=== PATIENT | female | born 1945 | race Caucasian/White ===

== ENCOUNTER 2020-10-07 04:38 | Emergency (ER) | payer MEDICARE ==
[~2020-10-07] VITALS: Ht 170.2 cm; Wt 97.7 kg
[2020-10-07 06:53] LABS: BASOPHILS # (AUTO) 0.1 X10'3 (0-0.2); BASOPHILS % (AUTO) 0.5 % (0-1); EOSINOPHILS # (AUTO) 0.1 X10'3 (0-0.9); EOSINOPHILS % (AUTO) 0.9 % (0-6); HEMATOCRIT 40.6 % (35.0-45.0); HEMOGLOBIN 13.3 g/dl (12.0-16.0); LYMPHOCYTES # (AUTO) 4.6 X10'3 (1.1-4.8); LYMPHOCYTES % (AUTO) 29.9 % (21-51); MEAN CORPUSCULAR HEMOGLOBIN 28.5 PG (27.0-31.0); MEAN CORPUSCULAR HGB CONC 32.8 g/dL (33.0-36.5); MEAN CORPUSCULAR VOLUME 86.9 FL (78-98); MEAN PLATELET VOLUME 9.7 FL (7.4-10.4); MONOCYTES # (AUTO) 0.6 X10'3 (0-0.9); NEUTROPHILS # (AUTO) 9.9 X10'3 (1.8-7.7); NEUTROPHILS % (AUTO) 64.7 % (42-75); PLATELET COUNT 264 X10'3 (140-440); RED BLOOD COUNT 4.67 X10'6 (4.20-5.60); RED CELL DISTRIBUTION WIDTH 13.6 % (11.5-14.5); WHITE BLOOD COUNT 15.3 X10'3 (4.5-11.0)
[2020-10-07 07:05] LABS: ALANINE AMINOTRANSFERASE 23 U/L (12-78); ALBUMIN 3.1 G/DL (3.4-5.0); ALBUMIN/GLOBULIN RATIO 0.8 (1.1-1.5); ALKALINE PHOSPHATASE 90 IU/L (46-116); ANION GAP 8 (8-16); ASPARTATE AMINO TRANSFERASE 16 U/L (10-37); BILIRUBIN,TOTAL 0.3 MG/DL (0.1-1.0); BLOOD UREA NITROGEN 21 MG/DL (7-18); BUN/CREATININE RATIO 22.6 (6.6-38.0); CALCIUM 8.6 MG/DL (8.5-10.1); CHLORIDE 105 MMOL/L (99-107); CREATININE 0.93 MG/DL (0.40-0.90); GLUCOSE 240 MG/DL (70-104); SODIUM 139 MMOL/L (135-145); TOTAL CARBON DIOXIDE 25.8 MMOL/L (24-32); TOTAL PROTEIN 6.9 G/DL (6.4-8.2); eGFR 59 ML/MIN
[2020-10-07] MEDS ORDERED: HYDR-3972 PO (07:42)
[2020-10-07] MEDS ORDERED: LOSA25TA41 PO (07:42)
[2020-10-07] MEDS ORDERED: NOVLG SQ (07:42)
[2020-10-07] MEDS ORDERED: INSU100V12 SQ (07:42)
[2020-10-07] MEDS ORDERED: ONDA-103 PO (07:42)
[2020-10-07] MEDS ORDERED: PRAV40TA3 PO (07:42)
[2020-10-07] MEDS ORDERED: ASPI-611 PO (07:44)
[2020-10-07] MEDS ORDERED: HYDR-3964 PO (08:10)
[2020-10-07] MEDS ORDERED: CEPH-585 PO (08:10)
[2020-10-07] MEDS ORDERED: ONDA4TAB6 PO (08:10)
[2020-10-07] MEDS ORDERED: gentamicin in saline, iso-osm 80 MG/50 ML premix IV ONE (09:20)
[2020-10-07] MEDS ORDERED: ceFAZolin 1000mg inj IV ONE (09:20)
[2020-10-07] MEDS ORDERED: cefazolin/dext.iso 2gm/100ml 100 ML IV ONE (09:35)
[2020-10-07] MEDS ORDERED: gentamicin inj 80 MG in normal saline 100ml IV soln 98 ML IV ONE (09:35)
[2020-10-07] MEDS ORDERED: magnesium 4gm in 100ml NS 100 ML IV PRN (09:40)
[2020-10-07] MEDS ORDERED: ondansetron/PF 4mg/2ml inj IV PRN ×2 (09:40→09:45)
[2020-10-07] MEDS ORDERED: potassium Cl 40MEQ/1/2NS 520ml 520 ML IV PRN ×2 (09:40)
[2020-10-07] MEDS ORDERED: magnesium Cl slow-release 64mg tablet PO PRN (09:40)
[2020-10-07] MEDS ORDERED: acetaminophen 325mg tablet PO PRN ×3 (09:40→09:45)
[2020-10-07] MEDS ORDERED: magnesium 2GM in 50ml NS 50 ML IV PRN (09:40)
[2020-10-07] MEDS ORDERED: potassium Cl 20 mEq SR tablet PO PRN ×2 (09:40)
[2020-10-07] MEDS ORDERED: glucagon, human recombinant 1mg kit SUBCUT PRN (09:45)
[2020-10-07] MEDS ORDERED: insulin Lispro (HumaLOG) vial - multi-dose SQ SCH (09:45)
[2020-10-07] MEDS ORDERED: magnesium hydroxide 30ml (MOM) UD suspension PO PRN (09:45)
[2020-10-07] MEDS ORDERED: morphine 2 MG/ML inj. syringe IV PRN ×2 (09:45)
[2020-10-07] MEDS ORDERED: dextrose 50%-water 50ml dispensing syringe IV PRN ×2 (09:45)
[2020-10-07] MEDS ORDERED: dextrose ORAL solution 15 GM/59 ML bottle PO PRN ×2 (09:45)
[2020-10-07] MEDS ORDERED: mag hydrox/Alum hydrox/simeth 30ml oral suspension PO PRN (09:45)
[2020-10-07] MEDS ORDERED: MESSAGE TO PHARMACY PO ONE (09:45)
[2020-10-07] MEDS ORDERED: HYDROcodone/acetaminophen 5mg/325mg tablet PO PRN (09:45)
[2020-10-07] MEDS ORDERED: HYDROcodone/acetaminophen 10/325mg tab PO PRN (09:45)
[2020-10-07 10:26] LABS: HEMOGLOBIN A1C 7.9 % (4.5-6.2)
[2020-10-07 10:26] LABS: PARTIAL THROMBOPLASTIN TIME 26 SECONDS (22-32)
[2020-10-07] MEDS ORDERED: ALBU18HF2 IH (10:51)
[2020-10-07] MEDS ORDERED: albuterol 2.5 MG/3 ML nebule NEB PRN (11:55)
[2020-10-07] MEDS: aspirin 81mg tablet.DR PO SCH (14:15)
[2020-10-07] MEDS: losartan 25mg tablet PO SCH (14:17)
[2020-10-07] MEDS: ceFAZolin/D5W- 1GM premix 50 ML IV SCH (16:59)
[2020-10-07] MEDS: K and/or MAG REPLACEMENT MC SCH (20:00)
[2020-10-07] MEDS: heparin, porcine 5000 units/ml vial SQ SCH (20:00)
[2020-10-07] MEDS: lactobacillus rhamnosus 10,000 MMU CELLS/CAPSULE PO SCH (20:00)
[2020-10-07] MEDS ORDERED: insulin glargine (Lantus) pen - multi-dose SQ SCH (21:00)
[2020-10-07] MEDS ORDERED: pravastatin 40mg tablet PO SCH (21:00)
[2020-10-08 06:49] VITALS: BP_DIAS 67
[2020-10-08] MEDS: K and/or MAG REPLACEMENT MC SCH (08:00)
[2020-10-08 08:16] LABS: BASOPHILS # (AUTO) 0.1 X10'3 (0-0.2); BASOPHILS % (AUTO) 0.6 % (0-1); EOSINOPHILS # (AUTO) 0.3 X10'3 (0-0.9); EOSINOPHILS % (AUTO) 2.7 % (0-6); HEMATOCRIT 42.8 % (35.0-45.0); HEMOGLOBIN 13.8 g/dl (12.0-16.0); LYMPHOCYTES # (AUTO) 4.2 X10'3 (1.1-4.8); MEAN CORPUSCULAR HEMOGLOBIN 28.5 PG (27.0-31.0); MEAN CORPUSCULAR HGB CONC 32.2 g/dL (33.0-36.5); MEAN CORPUSCULAR VOLUME 88.6 FL (78-98); MEAN PLATELET VOLUME 8.7 FL (7.4-10.4); MONOCYTES # (AUTO) 0.5 X10'3 (0-0.9); MONOCYTES % (AUTO) 5.9 % (2-12); NEUTROPHILS # (AUTO) 4.3 X10'3 (1.8-7.7); NEUTROPHILS % (AUTO) 45.8 % (42-75); PLATELET COUNT 221 X10'3 (140-440); RED BLOOD COUNT 4.83 X10'6 (4.20-5.60); RED CELL DISTRIBUTION WIDTH 14.3 % (11.5-14.5); WHITE BLOOD COUNT 9.3 X10'3 (4.5-11.0)
[2020-10-08 08:52] LABS: ANION GAP 9 (8-16); BLOOD UREA NITROGEN 16 MG/DL (7-18); CALCIUM 8.7 MG/DL (8.5-10.1); CHLORIDE 108 MMOL/L (99-107); CREATININE 0.94 MG/DL (0.40-0.90); GLUCOSE 185 MG/DL (70-104); MAGNESIUM 1.6 MG/DL (1.5-2.4); POTASSIUM 3.9 MMOL/L (3.5-5.1); SODIUM 143 MMOL/L (135-145); eGFR 58 ML/MIN
[2020-10-08 09:28] VITALS: BP_SYST 139
[2020-10-08] MEDS: losartan 25mg tablet PO SCH (09:28)
[2020-10-08] MEDS: aspirin 81mg tablet.DR PO SCH (09:28)
[2020-10-08] MEDS: ceFAZolin/D5W- 1GM premix 50 ML IV SCH ×2 (09:28)
[2020-10-08] MEDS: heparin, porcine 5000 units/ml vial SQ SCH (09:29)
[2020-10-08] MEDS: lactobacillus rhamnosus 10,000 MMU CELLS/CAPSULE PO SCH (09:29)
[2020-10-08] MEDS ORDERED: AMOX-580 PO (10:11)
--- NOTE | 2020-10-08 10:11 | NUR ---
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
--- NOTE | 2020-10-08 11:18 | NUR ---
Spoke withj caregiver Karen, numbers given for transportation services, is for air med only and is unavailable to speak with guest relations representative due to holiday, called and placed on hold several times for 20-30 minutes at time, house sup will arrange [employer] transport
--- NOTE | 2020-10-08 13:24 | NUR ---
Per house sup, [facility] is transporting patient at 1500 to home, notified landcare facilitator Karen
== END 2020-10-07 16:36 | disposition home or self-care (01) ==
LOC: ER 04:40 → ED HOLD 09:43 → UNDOADMOB 09:43 → ER 16:36 → UNDODISOB 10-08 15:40
DX: S92.401A Displaced unspecified fracture of right great toe, initial encounter for closed fracture (principal); E11.65 Type 2 diabetes mellitus with hyperglycemia; E78.5 Hyperlipidemia, unspecified; I25.10 Atherosclerotic heart disease of native coronary artery without angina pectoris; I25.2 Old myocardial infarction; Z95.1 Presence of aortocoronary bypass graft; Z79.82 Long term (current) use of aspirin; Z79.899 Other long term (current) drug therapy; W22.8XXA Striking against or struck by other objects, initial encounter; Y93.89 Activity, other specified; Y92.89 Other specified places as the place of occurrence of the external cause; Y99.8 Other external cause status; Z99.3 Dependence on wheelchair
CPT/HCPCS: 36415; 64450; 73660; 80053; 82948; 83036; 85025; 85610; 85730; 96365; 96366; 96368; 96372; 99284; J0690; J1580; J1644; J1815; 80048; 83735; 94760; 96367; 96375; G0378